=== PATIENT | male | born 1995 | race African-American/Black ===

== ENCOUNTER 2019-07-24 11:17 | Emergency (ER) | payer MEDICAID ==
[~2019-07-24] VITALS: Ht 167.6 cm; Wt 64.0 kg
[2019-07-24 12:50] LABS: BASOPHILS % 1.3 % (0.0-2.0); EOSINOPHILS % 5.9 % (0.0-5.0); HEMOGLOBIN. 15.2 g/dL (14.0-18.0); LYMPHOCYTES % 49.5 % (20.0-50.0); MEAN CORPUSCULAR HEMOGLOBIN 31.6 pg (28.0-32.0); MEAN CORPUSCULAR VOLUME 91.4 fL (80.0-94.0); MEAN PLATELET VOLUME 8.6 fl (7.4-10.4); MONOCYTES % 8.4 % (2.0-8.0); NEUTROPHILS % 34.9 % (40.0-76.0); PLATELET 218 x1000/uL (130-400); RED BLOOD CELL COUNT 4.81 mill/uL (4.7-6.1)
[2019-07-24 12:59] LABS: CHLORIDE 106 mEq/L (98-107)
[2019-07-24 13:04] LABS: ETHANOL BLOOD < 10 mg/dL
[2019-07-24 16:59] LABS: CLARITY URINE CLEAR (CLEAR); COLOR URINE YELLOW (YELLOW); KETONES URINE NEGATIVE (NEGATIVE); LEUKOCYTE ESTERASE URINE NEGATIVE (NEGATIVE); NITRITE URINE NEGATIVE (NEGATIVE); OCCULT BLOOD URINE NEGATIVE (NEGATIVE); PROTEIN URINE 1+ (NEGATIVE)
[2019-07-24 17:10] LABS: *AMPHETAMINES SCREEN URINE NEGATIVE (NEGATIVE); *BARBITURATES SCREEN URINE NEGATIVE (NEGATIVE)
[2019-07-24 17:11] LABS: *BENZODIAZEPINES SCREEN URINE NEGATIVE (NEGATIVE); *COCAINE SCREEN URINE NEGATIVE (NEGATIVE); CANNABINOID URINE SCREEN PRESUMTIVE POSITIVE (NEGATIVE); METHADONE URINE SCREEN NEGATIVE (NEGATIVE); OPIATES URINE SCREEN NEGATIVE (NEGATIVE)
[2019-07-24 17:12] LABS: PHENCYCLIDINE URINE SCREEN NEGATIVE (NEGATIVE)
[2019-07-25 10:30] VITALS: BP 116/70
== END 2019-07-25 12:02 | disposition home or self-care (01) ==
LOC: ER 11:30
DX: F41.9 Anxiety disorder, unspecified (principal); F12.10 Cannabis abuse, uncomplicated; R45.851 Suicidal ideations; D72.819 Decreased white blood cell count, unspecified; F17.210 Nicotine dependence, cigarettes, uncomplicated; Z59.0 Homelessness; Z75.1 Person awaiting admission to adequate facility elsewhere
CPT/HCPCS: 36415; 80053; 80305; 80320; 81003; 85025; 99284; Z7610; G0480

== ENCOUNTER 2024-02-16 00:40 | Emergency (ER) | payer MEDICAID ==
[~2024-02-16] VITALS: Ht 170.2 cm; Wt 61.0 kg
[2024-02-16 00:43] VITALS: O2SAT 99
[2024-02-16 01:18] LABS: BASOPHILS % 1.2 % (0.0-2.0); EOSINOPHILS % 0.1 % (0.0-5.0); HEMATOCRIT. 43.6 % (42.0-52.0); HEMOGLOBIN. 14.8 g/dL (14.0-18.0); LYMPHOCYTES % 19.1 % (20.0-50.0); MEAN CORPUSCULAR HEMOGLOBIN 31.3 pg (28.0-32.0); MEAN CORPUSCULAR HGB CONC 34.1 g/dL (31.0-37.0); MEAN PLATELET VOLUME 8.1 fl (7.4-10.4); MONOCYTES % 6.7 % (2.0-8.0); NEUTROPHILS % 72.9 % (40.0-76.0); PLATELET 290 x1000/uL (130-400); RED BLOOD CELL COUNT 4.74 mill/uL (4.7-6.1); RED CELL DISTRIBUTION WIDTH 13.1 % (11.6-14.6)
[2024-02-16 01:25] LABS: CARBON DIOXIDE 30 mEq/L (21-32); CHLORIDE 96 mEq/L (98-107); POTASSIUM 3.3 mEq/L (3.5-5.1); SODIUM 132 mEq/L (136-145)
[2024-02-16 01:26] LABS: CALCIUM 10.8 mg/dL (8.7-10.4)
[2024-02-16 01:31] LABS: CREATININE 1.1 mg/dL (0.6-1.3); GLUCOSE 123 mg/dL (70-105); UREA NITROGEN BLOOD 11 mg/dL (9-23)
[2024-02-16 01:32] LABS: ACETAMINOPHEN < 2 ug/mL (10-30)
[2024-02-16 01:37] LABS: ETHANOL BLOOD < 10 mg/dL (<10)
[2024-02-16 01:40] LABS: *AMPHETAMINES SCREEN URINE PRESUMPTIVE POSITIVE (NEGATIVE); *BARBITURATES SCREEN URINE NEGATIVE (NEGATIVE); *BENZODIAZEPINES SCREEN URINE NEGATIVE (NEGATIVE); *COCAINE SCREEN URINE NEGATIVE (NEGATIVE); CANNABINOID URINE SCREEN PRESUMPTIVE POSITIVE (NEGATIVE); ECSTASY MDMA SCREEN URINE NEGATIVE (NEGATIVE); METHADONE URINE SCREEN NEGATIVE (NEGATIVE); OPIATES URINE SCREEN NEGATIVE (NEGATIVE); PHENCYCLIDINE URINE SCREEN NEGATIVE (NEGATIVE)
[2024-02-16] MEDS: RISPERIDONE 1MG TABLET PO ONE (01:42)
[2024-02-16] MEDS: OLANZAPINE 10 MG/VIAL IM ONE (03:30)
[2024-02-16] MEDS: RISPERIDONE 1MG TABLET PO SCH (15:45)
[2024-02-16 16:04] VITALS: BP 91/58; PULSE 72; RESP 18; TEMP 97.7
== END 2024-02-16 19:50 ==
LOC: ER 00:40
DX: R44.1 Visual hallucinations (principal); F41.9 Anxiety disorder, unspecified; F12.10 Cannabis abuse, uncomplicated; Z20.822 Contact with and (suspected) exposure to COVID-19
CPT/HCPCS: 80305; 80048; 80307; 80329; 80320; 85025; 36415; 93005; 96372; 99285; 87426; J3490; G0480

== ENCOUNTER 2024-05-25 13:54 | Emergency (ER) | payer MEDICAID ==
[~2024-05-25] VITALS: Ht 175.3 cm; Wt 72.0 kg
[2024-05-25 14:25] VITALS: BP 124/88; PULSE 96; RESP 18; TEMP 97; O2SAT 100
[2024-05-25] MEDS ORDERED: PERM60CR4 TP (16:02)
== END 2024-05-25 16:30 | disposition home or self-care (01) ==
LOC: ER 13:54
DX: B85.0 Pediculosis due to Pediculus humanus capitis (principal); F20.9 Schizophrenia, unspecified; F41.9 Anxiety disorder, unspecified; F15.10 Other stimulant abuse, uncomplicated
CPT/HCPCS: 99282